=== PATIENT | male | born 1960 | race African-American/Black ===

== ENCOUNTER 2019-09-12 11:43 | Inpatient (IN) | payer OTHER ==
[2019-09-12 16:19] VITALS: BMI 20.3
--- NOTE | 2019-09-12 17:34 | BHS.RME ---
Substance Use & Tx History - Substance Use History Alcohol Substance amount: 1pint of vodka/12 packs of 12 ozs of beer Frequency of use: Daily Substance route: Oral Date of Last Use: 09/12/19 Cocaine-Crack Substance amount: 60$ Frequency of use: More than 3 times per week Substance route: Smoking Date of Last Use: 09/11/19 - Last Treatment Date of last treatment: 2018 [facility] Where was last treatment: Detox Physical/Psych/Mental Status - Behavior Eye Contact: Normal - Cooperativeness Cooperativeness: Cooperative - Thinking Thought Processes: Logical Thought content: Future oriented - Physical Health Problems Is patient presently having any pain?: No Does patient presently have any injuries (include location): No Does patient currently have a fever: No CIWA Nausea/Vomitin Muscle Tremors: 3 Anxiety: 3 Agitation: 3 Paroxysmal Sweats: 1-Minimal Palms Moist Orientation: 0-Oriented Tacttile Disturbances: 1-Very Mild Itch/Numbness Auditory Disturbances: 0-None Visual Disturbances: 0-None Headache: 2-Mild CIWA-Ar Total Score: 15
--- NOTE | 2019-09-12 17:48 | HP ---
CIWA Score Nausea/Vomitin Muscle Tremors: 3 Anxiety: 3 Agitation: 3 Paroxysmal Sweats: 1-Minimal Palms Moist Orientation: 0-Oriented Tacttile Disturbances: 1-Very Mild Itch/Numbness Auditory Disturbances: 0-None Visual Disturbances: 0-None Headache: 2-Mild CIWA-Ar Total Score: 15 - Admission Criteria OASAS Guidelines: Admission for Medically Managed Detox: Requires at least one of the followin. CIWA greater than 12 2. Seizures within the past 24 hours 3. Delirium tremens within the past 24 hours 4. Hallucinations within the past 24 hours 5. Acute intervention needed for co occurring medical disorder 6. Acute intervention needed for co occurring psychiatric disorder 7. Severe withdrawal that cannot be handled at a lower level of care (continued vomiting, continued diarrhea, abnormal vital signs) requiring intravenous medication and/or fluids 8. Admitting History and Physical - Admission Chief Complaint: i need help to stop drinking alcohol,cocaine History of Present Illness: this 59 years old male with alcohol,cocaine dependence seeking detox,withdrawal symptom History Source: Patient, Caregiver - Past Surgical History Past Surgical History: Yes: None - Alcohol/Substance Use Hx Alcohol Use: Yes History of Substance Use: reports: Cocaine - Social History Usual Living Arrangement: Yes: Other (homeless) Do you think of yourself as: Straight/Heterosexual Occupation: unemployed History of Recent Travel: No Other Social History: unemployed,weight 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,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,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 Admission ROS BHS - HPI Chief Complaint: i need help to stop drinking alcohol,cocaine Allergies/Adverse Reactions: Allergies Allergy/AdvReac Type Severity Reaction Status Date / Time No Known Allergies Allergy Verified 09/12/19 18:04 History of Present Illness: this 59 years old male with alcohol and cocaine dependence seeking detox Exam Limitations: No Limitations - Ebola screening Have you traveled outside of the country in the last 21 days: No Have you had contact with anyone from an Ebola affected area: No Have you been sick,other than usual withdrawal symptoms: No Do you have a fever: No - Review of Systems Constitutional: Loss of Appetite, Malaise, Night Sweats, Changes in sleep, Weakness, Unintentional Wgt. Loss EENT: reports: Tearing, Nose Congestion Respiratory: reports: No Symptoms reported Cardiac: reports: No Symptoms Reported GI: reports: Nausea, Poor Appetite, Indigestion, Abdominal cramping : reports: No Symptoms Reported Musculoskeletal: reports: Back Pain, Muscle Pain Integumentary: reports: Dryness Neuro: reports: Headache, Tremors Endocrine: reports: No Symptoms Reported Hematology: reports: No Symptoms Reported Psychiatric: reports: No Sypmtoms Reported, Judgement Intact, Mood/Affect Appropiate, Orientated x3 Other Systems: Reviewed and Negative Patient History - Patient Medical History Hx Anemia: No Hx Asthma: No Hx Chronic Obstructive Pulmonary Disease (COPD): No Hx Cancer: No Hx Cardiac Disorders: No Hx Congestive Heart Failure: No Hx Hypertension: No Hx Hypercholesterolemia: No Hx Pacemaker: No HX Cerebrovascular Accident: No Hx Seizures: No Hx Dementia: No Hx Diabetes: No Hx Gastrointestinal Disorders: No Hx Liver Disease: No Hx Genitourinary Disorders: No Hx Sexually Transmitted Disorders: No Hx Renal Disease (ESRD): No Hx Thyroid Disease: No Hx Human Immunodeficiency Virus (HIV): No (last 2018) Hx Hepatitis C: No Hx Depression: No Hx Suicide Attempt: No Hx Bipolar Disorder: No Hx Schizophrenia: No Other Medical History: no suicidal,no homicidal - Patient Surgical History Past Surgical History: No - PPD History Previous Implant?: Yes Documented Results: Negative w/o proof Implanted On Prior [facility] Admission?: No PPD to be Administered?: Yes - Smoking Cessation Smoking history: Current every day smoker Have you smoked in the past 12 months: Yes Aproximately how many cigarettes per day: 0 Hx Chewing Tobacco Use: No Initiated information on smoking cessation: No 'Breaking Loose' booklet given: 09/12/19 - Substance & Tx. History Hx Alcohol Use: Yes Hx Substance Use: Yes Substance Use Type: Alcohol, Cocaine Hx Substance Use Treatment: Yes ([facility] 2018) - Substances abused Alcohol Substance route: Oral Frequency: 1-3 times last 30 days Amount used: 1 pint of vodka/12 packs of 12 ozs of beer Age of first use: 18 Date of last use: 09/12/19 Crack Substance route: Smoking Frequency: 3-6 times per week Amount used: 60$ Age of first use: 28 Date of last use: 09/11/19 Admission Physical Exam BHS - Vital Signs Vital Signs: Vital Signs - 24 hr 09/12/19 16:17 Temperature 97.6 F Pulse Rate 88 Respiratory 20 Rate Blood Pressure 127/82 - Physical General Appearance: Yes: Moderate Distress, Tremorous, Irritable, Sweating, Anxious HEENTM: Yes: Normal ENT Inspection, LUCA, Pharynx Normal Respiratory: Yes: Lungs Clear, Normal Breath Sounds, No Respiratory Distress Neck: Yes: Within Normal Limits, Supple, Trachea in good position Breast: Yes: Within Normal Limits Cardiology: Yes: Within Normal Limits, Regular Rhythm, Regular Rate, S1, S2 Abdominal: Yes: Within Normal Limits, Normal Bowel Sounds, Non Tender, Soft Genitourinary: Yes: Within Normal Limits Musculoskeletal: Yes: Back pain, Muscle Pain Extremities: Yes: Within Normal Limits, Normal Range of Motion, Tremors 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, Fully Oriented, Alert, Motor Strength 5/5 Integumentary: Yes: Dry Lymphatic: Yes: Within Normal Limits - Diagnostic (1) Alcohol dependence with uncomplicated withdrawal Current Visit: Yes Status: Acute (2) Cocaine dependence Current Visit: Yes Status: Acute (3) Weight loss Current Visit: Yes Status: Acute (4) Dehydration Current Visit: Yes Status: Acute (5) Nicotine dependence Current Visit: Yes Status: Acute Cleared for Admission [facility] - Detox or Rehab [facility] Level of Care: Medically Managed Detox Regimen/Protocol: [employer] Urine Drug Screen - Test Device Lot number: [id number] Expiration date: 09/13/21 - Control Is test valid?: Yes - Results Drug screen NEGATIVE: No Urine drug screen results: [facility]-Cocaine Inpatient Rehab Admission - Rehab Decision to Admit Inpatient rehab admission?: No
[2019-09-12] MEDS ORDERED: chlordiazePOXIDE HCL 25 MG CAPSULE PO PRN (18:03)
[2019-09-12] MEDS ORDERED: MAGNESIUM CITRATE 300 ML BOTTLE PO PRN (18:03)
[2019-09-12] MEDS ORDERED: NICOTINE POLACRILEX 2 MG GUM BUC PRN (18:03)
[2019-09-12] MEDS ORDERED: MENTHOL/PHENOL 1 EACH UD MM PRN (18:03)
[2019-09-12] MEDS ORDERED: ACETAMINOPHEN 325 MG TABLET (FP) PO PRN (18:03)
[2019-09-12] MEDS ORDERED: METHOCARBAMOL 500 MG TABLET PO PRN (18:03)
[2019-09-12] MEDS ORDERED: MAGNESIUM HYDROX 2400MG/30ML ORAL SUSPENSION 30 ML CUP PO PRN (18:03)
[2019-09-12] MEDS ORDERED: MAG HYDROX/AL HYDROX/SIMETH 30 ML UNIT-DOSE CUP PO PRN (18:03)
[2019-09-12] MEDS ORDERED: BISMUTH SUBSALICYLATE 524 MG/30 ML UD PO PRN (18:03)
[2019-09-12] MEDS ORDERED: ONDANSETRON *ODT* 4 MG TABLET SL ONE (18:03)
[2019-09-12] MEDS ORDERED: TUBERCULIN PPD 5 TU/0.1ML VIAL ID ONE (18:50)
[2019-09-12] MEDS: chlordiazePOXIDE HCL 25 MG CAPSULE PO SCH (22:21)
[2019-09-12] MEDS: MELATONIN 5 MG TABLETS PO SCH (22:21)
[2019-09-12] MEDS: hydrOXYzine PAMOATE 25 MG CAPSULE (FP) PO SCH (22:21)
[2019-09-12] MEDS: THIAMINE HCL 100 MG TABLET (FP) PO SCH (22:21)
[2019-09-13] MEDS: chlordiazePOXIDE HCL 25 MG CAPSULE PO SCH ×4 (06:09→22:38)
[2019-09-13] MEDS: hydrOXYzine PAMOATE 25 MG CAPSULE (FP) PO SCH ×5 (06:09→22:38)
--- NOTE | 2019-09-13 10:27 | EKG ---
Test Reason : Blood Pressure : / mmHG Vent. Rate : 065 BPM Atrial Rate : 065 BPM P-R Int : 138 ms QRS Dur : 078 ms QT Int : 408 ms P-R-T Axes : 067 074 067 degrees QTc Int : 424 ms NORMAL SINUS RHYTHM NORMAL ECG NO PREVIOUS ECGS AVAILABLE Confirmed by Jericho Eli ([id number]) on 09/13/2019 10:26:48 AM Referred By: Confirmed By:Jeircho Eli
[2019-09-13] MEDS: NICOTINE 7 MG/24 HOURS TOPICAL PATCH TD SCH (10:36)
[2019-09-13] MEDS: PRENATAL VITAMINS W/ FOLIC ACID TABLET (FP) PO SCH (10:37)
[2019-09-13 11:04] LABS: HEMATOCRIT 36.8 % (35.4-49); HEMOGLOBIN 12.4 GM/dL (11.7-16.9); MCH 35.6 pg (25.7-33.7); MCHC 33.6 g/dl (32.0-35.9); MEAN CELL VOLUME 106.1 fl (80-96); MEAN PLT VOLUME 7.8 fl (7.5-11.1); PLATELET COUNT 218 K/MM3 (134-434); RBC 3.47 M/mm3 (4.00-5.60); RDW 12.4 % (11.9-15.9); WHITE BLOOD COUNT 3.4 K/mm3 (4.0-10.0)
[2019-09-13 11:18] LABS: ALBUMIN 3.3 g/dl (3.4-5.0); BILIRUBIN,TOTAL 1.1 mg/dL (0.2-1); BLOOD UREA NITROGEN 9.9 mg/dL (7-18); CALCIUM 9.3 mg/dL (8.5-10.1); CREATININE 1.1 mg/dL (0.55-1.3); POTASSIUM 4.1 mmol/L (3.5-5.1); TOT PROT 6.4 g/dl (6.4-8.2)
[2019-09-13 11:39] LABS: SICKLE CELL SCREEN NEGATIVE (NEGATIVE)
--- NOTE | 2019-09-13 12:05 | PN ---
S CIWA - CIWA Score Nausea/Vomitin-No Nausea/No Vomiting Muscle Tremors: 4-Moderate,w/Arms Extend Anxiety: 4-Mod. Anxious/Guarded Agitation: 4-Moderately Restless Paroxysmal Sweats: 1-Minimal Palms Moist Orientation: 0-Oriented Tacttile Disturbances: 0-None Auditory Disturbances: 0-None Visual Disturbances: 0-None Headache: 0-None Present CIWA-Ar Total Score: 13 BHS Progress Note (SOAP) Subjective: Tremors aches fatigue intermittent sleep Objective: 09/13/19 12:04 Vital Signs - 24 hr 09/12/19 09/12/19 09/12/19 16:17 18:05 18:11 Temperature 97.6 F 97.6 F Pulse Rate 88 88 Respiratory 20 20 Rate Blood Pressure 127/82 127/82 O2 Sat by Pulse 99 Oximetry (%) 09/12/19 09/12/19 09/13/19 18:44 20:52 06:57 Temperature 97.5 F L 98.2 F 98.2 F Pulse Rate 66 90 72 Respiratory 18 18 18 Rate Blood Pressure 134/74 131/80 131/75 O2 Sat by Pulse 97 97 97 Oximetry (%) Laboratory Tests 09/13/19 09/13/19 09/13/19 08:05 08:05 08:05 WBC 3.4 L RBC 3.47 L Hgb 12.4 Hct 36.8 MCV 106.1 H MCH 35.6 H MCHC 33.6 RDW 12.4 Plt Count 218 MPV 7.8 Sickle Cell Screen Negative Sodium 141 Potassium 4.1 Chloride 107 Carbon Dioxide 27 Anion Gap 7 L BUN 9.9 Creatinine 1.1 Est GFR (CKD-EPI)AfAm 83.53 Est GFR (CKD-EPI)NonAf 72.07 Random Glucose 91 Calcium 9.3 Total Bilirubin 1.1 H AST 52 H ALT 28 Alkaline Phosphatase 73 Total Protein 6.4 Albumin 3.3 L Syphilis Serology Non-reactive Alert o x 3 nad in bed but sat up in response to rounding, communicating needs coherently. Assessment: 09/13/19 12:05 withdrawal sx Plan: cont detox increase po fluids maintain safety
[2019-09-13 21:13] LABS: URINE APPEARANCE CLEAR; URINE BILIRUBIN NEGATIVE (NEGATIVE); URINE COLOR DK YELLOW; URINE GLUCOSE (UA) NEGATIVE (NEGATIVE); URINE KETONE TRACE (NEGATIVE); URINE LEUK ESTERASE NEGATIVE (NEGATIVE); URINE NITRITE NEGATIVE (NEGATIVE); URINE PROTEIN NEGATIVE (NEGATIVE)
[2019-09-13] MEDS: THIAMINE HCL 100 MG TABLET (FP) PO SCH (22:38)
[2019-09-13] MEDS: IBUPROFEN 400 MG TABLET (FP) PO PRN (22:38)
[2019-09-13] MEDS: MELATONIN 5 MG TABLETS PO SCH (22:38)
[2019-09-14] MEDS: IBUPROFEN 400 MG TABLET (FP) PO PRN (06:13)
[2019-09-14] MEDS: hydrOXYzine PAMOATE 25 MG CAPSULE (FP) PO SCH ×5 (06:14→22:22)
[2019-09-14] MEDS: chlordiazePOXIDE HCL 25 MG CAPSULE PO SCH ×4 (06:14→22:22)
[2019-09-14] MEDS: NICOTINE 7 MG/24 HOURS TOPICAL PATCH TD SCH (10:47)
[2019-09-14] MEDS: PRENATAL VITAMINS W/ FOLIC ACID TABLET (FP) PO SCH (10:47)
--- NOTE | 2019-09-14 13:12 | PN ---
S CIWA - CIWA Score Nausea/Vomitin-No Nausea/No Vomiting Muscle Tremors: 2 Anxiety: 4-Mod. Anxious/Guarded Agitation: 4-Moderately Restless Paroxysmal Sweats: No Perspiration Orientation: 0-Oriented Tacttile Disturbances: 0-None Auditory Disturbances: 0-None Visual Disturbances: 0-None Headache: 0-None Present CIWA-Ar Total Score: 10 BHS Progress Note (SOAP) Subjective: c/o anxiety irritability Headache Objective: 09/14/19 13:09 Vital Signs - 24 hr 09/13/19 09/13/19 09/14/19 16:54 20:48 05:53 Temperature 97.7 F 97.8 F 97.3 F L Pulse Rate 66 106 H 74 Respiratory 16 18 18 Rate Blood Pressure 123/62 106/62 105/65 O2 Sat by Pulse 97 94 L Oximetry (%) Laboratory Tests 09/12/19 09/13/19 09/13/19 18:20 08:05 08:05 WBC 3.4 L RBC 3.47 L Hgb 12.4 Hct 36.8 MCV 106.1 H MCH 35.6 H MCHC 33.6 RDW 12.4 Plt Count 218 MPV 7.8 Sickle Cell Screen Negative Sodium Potassium Chloride Carbon Dioxide Anion Gap BUN Creatinine Est GFR (CKD-EPI)AfAm Est GFR (CKD-EPI)NonAf Random Glucose Calcium Total Bilirubin AST ALT Alkaline Phosphatase Total Protein Albumin Urine Color Urine Appearance Urine pH Ur Specific [place] Urine Protein Urine Glucose (UA) Urine Ketones Urine Blood Urine Nitrite Urine Bilirubin Urine Urobilinogen Ur Leukocyte Esterase Syphilis Serology Non-reactive COVID-19 ([facility]) Not detected 09/13/19 09/13/19 08:05 18:23 WBC RBC Hgb Hct MCV MCH MCHC RDW Plt Count MPV Sickle Cell Screen Sodium 141 Potassium 4.1 Chloride 107 Carbon Dioxide 27 Anion Gap 7 L BUN 9.9 Creatinine 1.1 Est GFR (CKD-EPI)AfAm 83.53 Est GFR (CKD-EPI)NonAf 72.07 Random Glucose 91 Calcium 9.3 Total Bilirubin 1.1 H AST 52 H ALT 28 Alkaline Phosphatase 73 Total Protein 6.4 Albumin 3.3 L Urine Color Dk yellow Urine Appearance Clear Urine pH 5.0 Ur Specific [place] 1.027 Urine Protein Negative Urine Glucose (UA) Negative Urine Ketones Trace H Urine Blood Negative Urine Nitrite Negative Urine Bilirubin Negative Urine Urobilinogen 1.0 Ur Leukocyte Esterase Negative Syphilis Serology COVID-19 ([facility]) covid-19 not detectedalert o x 3 nad oob ambulating with steady gait Assessment: 09/14/19 13:11 withdrawal sx Plan: cont detox increase po fluids maintain safety Tylenol prn for haedache
[2019-09-14] MEDS: ACETAMINOPHEN 325 MG TABLET (FP) PO PRN (18:07)
[2019-09-14] MEDS: MELATONIN 5 MG TABLETS PO SCH (22:22)
[2019-09-14] MEDS: THIAMINE HCL 100 MG TABLET (FP) PO SCH (22:22)
[2019-09-15] MEDS ORDERED: chlordiazePOXIDE HCL 10 MG CAPSULE PO PRN
[2019-09-15] MEDS: hydrOXYzine PAMOATE 25 MG CAPSULE (FP) PO SCH ×5 (06:15→22:20)
[2019-09-15] MEDS: chlordiazePOXIDE HCL 10 MG CAPSULE PO SCH ×4 (06:15→22:20)
[2019-09-15] MEDS: PRENATAL VITAMINS W/ FOLIC ACID TABLET (FP) PO SCH (10:24)
[2019-09-15] MEDS: NICOTINE 7 MG/24 HOURS TOPICAL PATCH TD SCH (10:24)
[2019-09-15] MEDS: IBUPROFEN 400 MG TABLET (FP) PO PRN (10:27)
--- NOTE | 2019-09-15 13:37 | PN ---
S CIWA - CIWA Score Nausea/Vomitin-No Nausea/No Vomiting Muscle Tremors: None Anxiety: 4-Mod. Anxious/Guarded Agitation: 4-Moderately Restless Paroxysmal Sweats: No Perspiration Orientation: 0-Oriented Tacttile Disturbances: 0-None Auditory Disturbances: 0-None Visual Disturbances: 0-None Headache: 0-None Present CIWA-Ar Total Score: 8 BHS Progress Note (SOAP) Subjective: Pt c/o "Terrible" feeling. irritability,restlessness, anxiety. Objective: 09/15/19 13:39 Vital Signs - 24 hr 09/14/19 09/14/19 09/15/19 16:45 20:55 05:47 Temperature 99.1 F 97.7 F 97.7 F Pulse Rate 89 103 H 103 H Respiratory 18 18 18 Rate Blood Pressure 120/73 137/84 108/63 O2 Sat by Pulse 96 96 Oximetry (%) Laboratory Tests 09/12/19 09/13/19 09/13/19 18:20 08:05 08:05 WBC 3.4 L RBC 3.47 L Hgb 12.4 Hct 36.8 MCV 106.1 H MCH 35.6 H MCHC 33.6 RDW 12.4 Plt Count 218 MPV 7.8 Sickle Cell Screen Negative Sodium Potassium Chloride Carbon Dioxide Anion Gap BUN Creatinine Est GFR (CKD-EPI)AfAm Est GFR (CKD-EPI)NonAf Random Glucose Calcium Total Bilirubin AST ALT Alkaline Phosphatase Total Protein Albumin Urine Color Urine Appearance Urine pH Ur Specific [place] Urine Protein Urine Glucose (UA) Urine Ketones Urine Blood Urine Nitrite Urine Bilirubin Urine Urobilinogen Ur Leukocyte Esterase Syphilis Serology Non-reactive COVID-19 ([facility]) Not detected 09/13/19 09/13/19 08:05 18:23 WBC RBC Hgb Hct MCV MCH MCHC RDW Plt Count MPV Sickle Cell Screen Sodium 141 Potassium 4.1 Chloride 107 Carbon Dioxide 27 Anion Gap 7 L BUN 9.9 Creatinine 1.1 Est GFR (CKD-EPI)AfAm 83.53 Est GFR (CKD-EPI)NonAf 72.07 Random Glucose 91 Calcium 9.3 Total Bilirubin 1.1 H AST 52 H ALT 28 Alkaline Phosphatase 73 Total Protein 6.4 Albumin 3.3 L Urine Color Dk yellow Urine Appearance Clear Urine pH 5.0 Ur Specific [place] 1.027 Urine Protein Negative Urine Glucose (UA) Negative Urine Ketones Trace H Urine Blood Negative Urine Nitrite Negative Urine Bilirubin Negative Urine Urobilinogen 1.0 Ur Leukocyte Esterase Negative Syphilis Serology COVID-19 ([facility]) alert o x 3 nad oo ambulating with steady gait Assessment: 09/15/19 13:40 withdrawal sx Plan: continue detox increase po fluids maintain safety
[2019-09-15] MEDS: MELATONIN 5 MG TABLETS PO SCH (22:20)
[2019-09-15] MEDS: THIAMINE HCL 100 MG TABLET (FP) PO SCH (22:20)
[2019-09-16] MEDS: chlordiazePOXIDE HCL 10 MG CAPSULE PO SCH ×2 (08:00→17:48)
[2019-09-16] MEDS: hydrOXYzine PAMOATE 25 MG CAPSULE (FP) PO SCH ×5 (08:00→21:41)
[2019-09-16] MEDS: PRENATAL VITAMINS W/ FOLIC ACID TABLET (FP) PO SCH (10:36)
[2019-09-16] MEDS: NICOTINE 7 MG/24 HOURS TOPICAL PATCH TD SCH (10:37)
--- NOTE | 2019-09-16 17:02 | PN ---
S CIWA - CIWA Score Nausea/Vomitin-No Nausea/No Vomiting Muscle Tremors: None Anxiety: 4-Mod. Anxious/Guarded Agitation: 2 Paroxysmal Sweats: 1-Minimal Palms Moist Orientation: 0-Oriented Tacttile Disturbances: 0-None Auditory Disturbances: 0-None Visual Disturbances: 0-None Headache: 0-None Present CIWA-Ar Total Score: 7 BHS Progress Note (SOAP) Subjective: reports detox proceeding well. Reports anxious to go to rehab. c/o anxiety restlessness Objective: 09/16/19 17:01 Vital Signs - 24 hr 09/15/19 09/16/19 20:11 05:47 Temperature 97.1 F L 97.1 F L Pulse Rate 87 76 Respiratory 16 16 Rate Blood Pressure 134/73 127/73 O2 Sat by Pulse 96 97 Oximetry (%) Laboratory Tests 09/12/19 09/13/19 09/13/19 18:20 08:05 08:05 WBC 3.4 L RBC 3.47 L Hgb 12.4 Hct 36.8 MCV 106.1 H MCH 35.6 H MCHC 33.6 RDW 12.4 Plt Count 218 MPV 7.8 Sickle Cell Screen Negative Sodium Potassium Chloride Carbon Dioxide Anion Gap BUN Creatinine Est GFR (CKD-EPI)AfAm Est GFR (CKD-EPI)NonAf Random Glucose Calcium Total Bilirubin AST ALT Alkaline Phosphatase Total Protein Albumin Urine Color Urine Appearance Urine pH Ur Specific [place] Urine Protein Urine Glucose (UA) Urine Ketones Urine Blood Urine Nitrite Urine Bilirubin Urine Urobilinogen Ur Leukocyte Esterase Syphilis Serology Non-reactive COVID-19 ([facility]) Not detected 09/13/19 09/13/19 08:05 18:23 WBC RBC Hgb Hct MCV MCH MCHC RDW Plt Count MPV Sickle Cell Screen Sodium 141 Potassium 4.1 Chloride 107 Carbon Dioxide 27 Anion Gap 7 L BUN 9.9 Creatinine 1.1 Est GFR (CKD-EPI)AfAm 83.53 Est GFR (CKD-EPI)NonAf 72.07 Random Glucose 91 Calcium 9.3 Total Bilirubin 1.1 H AST 52 H ALT 28 Alkaline Phosphatase 73 Total Protein 6.4 Albumin 3.3 L Urine Color Dk yellow Urine Appearance Clear Urine pH 5.0 Ur Specific [place] 1.027 Urine Protein Negative Urine Glucose (UA) Negative Urine Ketones Trace H Urine Blood Negative Urine Nitrite Negative Urine Bilirubin Negative Urine Urobilinogen 1.0 Ur Leukocyte Esterase Negative Syphilis Serology COVID-19 ([facility]) alert o x 3 nad oob ambulating with steady gait Assessment: 09/16/19 17:01 mild w/s Plan: cont detox d/c in [facility] if medically stable.
[2019-09-16] MEDS: ACETAMINOPHEN 325 MG TABLET (FP) PO PRN (19:36)
[2019-09-16] MEDS: MELATONIN 5 MG TABLETS PO SCH (21:41)
[2019-09-16] MEDS: THIAMINE HCL 100 MG TABLET (FP) PO SCH (21:41)
[2019-09-17] MEDS ORDERED: chlordiazePOXIDE HCL 10 MG CAPSULE PO ONE (05:00)
[2019-09-17] MEDS: hydrOXYzine PAMOATE 25 MG CAPSULE (FP) PO SCH ×2 (06:10→10:20)
--- NOTE | 2019-09-17 08:29 | DS ---
[facility] Detox Discharge Summary Admission Date: 09/12/19 Discharge Date: 09/17/19 - History Present History: Alcohol Dependence, Cocaine Dependence Additional Comments: Pt reports no current PCP but has been referred to [facility] for medical management. Pertinent Past History: Decreased weight - Physical Exam Results Vital Signs: Vital Signs Temperature 97.3 F L 09/17/19 05:52 Pulse Rate 78 09/17/19 05:52 Respiratory Rate 17 09/17/19 05:52 Blood Pressure 114/69 09/17/19 05:52 O2 Sat by Pulse Oximetry (%) 97 09/17/19 05:52 alert o x 3 nad oob ambulating with a steady gait cardiac:s1 s2, rrr lung:ctab abdomen:+bs,soft,nt,nd, flat. Pertinent Admission Physical Exam Findings: Laboratory Tests 09/12/19 09/13/19 09/13/19 18:20 08:05 08:05 WBC 3.4 L RBC 3.47 L Hgb 12.4 Hct 36.8 MCV 106.1 H MCH 35.6 H MCHC 33.6 RDW 12.4 Plt Count 218 MPV 7.8 Sickle Cell Screen Negative Sodium Potassium Chloride Carbon Dioxide Anion Gap BUN Creatinine Est GFR (CKD-EPI)AfAm Est GFR (CKD-EPI)NonAf Random Glucose Calcium Total Bilirubin AST ALT Alkaline Phosphatase Total Protein Albumin Urine Color Urine Appearance Urine pH Ur Specific [place] Urine Protein Urine Glucose (UA) Urine Ketones Urine Blood Urine Nitrite Urine Bilirubin Urine Urobilinogen Ur Leukocyte Esterase Syphilis Serology Non-reactive COVID-19 ([facility]) Not detected 09/13/19 09/13/19 08:05 18:23 WBC RBC Hgb Hct MCV MCH MCHC RDW Plt Count MPV Sickle Cell Screen Sodium 141 Potassium 4.1 Chloride 107 Carbon Dioxide 27 Anion Gap 7 L BUN 9.9 Creatinine 1.1 Est GFR (CKD-EPI)AfAm 83.53 Est GFR (CKD-EPI)NonAf 72.07 Random Glucose 91 Calcium 9.3 Total Bilirubin 1.1 H AST 52 H ALT 28 Alkaline Phosphatase 73 Total Protein 6.4 Albumin 3.3 L Urine Color Dk yellow Urine Appearance Clear Urine pH 5.0 Ur Specific [place] 1.027 Urine Protein Negative Urine Glucose (UA) Negative Urine Ketones Trace H Urine Blood Negative Urine Nitrite Negative Urine Bilirubin Negative Urine Urobilinogen 1.0 Ur Leukocyte Esterase Negative Syphilis Serology COVID-19 ([facility]) - Treatment Hospital Course: Detox Protocol Followed, Detoxed Safely, Responded well, Discharged Condition Good, Rehab Referral Accepted Patient has Accepted a Rehab Referral to: [facility] - Medication Discharge Medications: Ambulatory Orders NK [No Known Home Medication] 09/12/19 - Diagnosis (1) Alcohol dependence with uncomplicated withdrawal Status: Acute (2) Cocaine dependence Status: Acute Qualifiers: Substance use status: uncomplicated Qualified Code(s): F14.20 - Cocaine dependence, uncomplicated (3) Dehydration Status: Acute (4) Nicotine dependence Status: Acute Qualifiers: Nicotine product type: cigarettes Substance use status: in withdrawal Qualified Code(s): F17.213 - Nicotine dependence, cigarettes, with withdrawal (5) Weight loss Status: Acute - AMA Did Patient Leave Against Medical Advice: No
[2019-09-17 09:57] VITALS: BP 131/72; PULSE 94; TEMP 97.5
[2019-09-17] MEDS: NICOTINE 7 MG/24 HOURS TOPICAL PATCH TD SCH (10:19)
[2019-09-17] MEDS: PRENATAL VITAMINS W/ FOLIC ACID TABLET (FP) PO SCH (10:20)
== END 2019-09-17 10:35 | disposition home or self-care (01) | DRG 774 ==
LOC: YASAS 11:43 → Y5N DETOX 18:03
PROVIDERS: ADMIT Allergy & Immunology; ATTEND Allergy & Immunology
PROC: HZ2ZZZZ Detoxification Services for Substance Abuse Treatment (ICD-10-PCS; principal; 2019-09-12)
DX: F10.230 Alcohol dependence with withdrawal, uncomplicated (principal); F14.20 Cocaine dependence, uncomplicated; F17.213 Nicotine dependence, cigarettes, with withdrawal; E86.0 Dehydration; R63.4 Abnormal weight loss; Z56.0 Unemployment, unspecified; Z59.0 Homelessness
CPT/HCPCS: 36415; 80053; 81003; 85027; 85660; 86780; 93005; 93010; U0003